=== PATIENT | female | born 1990 | race Caucasian/White ===

== ENCOUNTER 2017-03-12 07:40 | Emergency (ER) | payer BC ==
[2017-03-12 08:04] VITALS: BP 135/69
--- NOTE | 2017-03-12 08:38 | EDM.PDOC ---
ED HPI GENERAL MEDICAL PROBLEM - General Chief Complaint: ENT Problem Stated Complaint: SORE THROAT Time Seen by Provider: 03/12/17 08:11 Source of Information: Reports: Patient History Limitations: Reports: No Limitations - History of Present Illness INITIAL COMMENTS - FREE TEXT/NARRATIVE: Patient presents for evaluation of her significant sore throat. She's been exposed to strep Onset: Gradual Duration: Hour(s):, Getting Worse Location: Reports: Neck Quality: Reports: Ache, Stabbing Severity: Moderate Improves with: Reports: None Worsens with: Reports: None Context: Reports: Sick Contact Associated Symptoms: Reports: Fever/Chills, Loss of Appetite Treatments COUNTY NURSE: Reports: Acetaminophen Throat Pain Score (Numeric/FACES): 8 - Related Data Allergies Allergy/AdvReac Type Severity Reaction Status Date / Time No Known Allergies Allergy Verified 03/12/17 07:59 Home Meds: Home Meds NK [No Known Home Meds] 03/12/17 [History] Past Medical History HEENT History: Reports: Impaired Vision, Other (See Below) Other HEENT History: Past positive strep [employer] WORK[employer] History: Reports: Musculoskeletal History: Reports: Fracture Other Musculoskeletal History: L ankle - Infectious Disease History Infectious Disease History: Reports: Chicken Pox - Past Surgical History Dermatological Surgical History: Reports: Other (See Below) Social & Family History - Tobacco Use Smoking Status *Q: Never Smoker Second Hand Smoke Exposure: No - Caffeine Use Caffeine Use: Reports: Coffee, Tea - Alcohol Use Days Per Week of Alcohol Use: 0 - Recreational Drug Use Recreational Drug Use: No ED ROS ENT - Review of Systems Review Of Systems: See Below Constitutional: Reports: No Symptoms HEENT: Reports: Throat Pain Respiratory: Reports: Cough Cardiovascular: Reports: No Symptoms Endocrine: Reports: Fatigue GI/Abdominal: Reports: No Symptoms : Reports: No Symptoms Musculoskeletal: Reports: No Symptoms Skin: Reports: No Symptoms Neurological: Reports: Headache Psychiatric: Reports: No Symptoms ED EXAM, ENT - Physical Exam Exam: See Below Exam Limited By: No Limitations General Appearance: Alert, WD/WN, Moderate Distress Eye Exam: Bilateral Eye: Normal Inspection Ears: Normal External Exam, Hearing Grossly Normal Nose: Normal Inspection Mouth/Throat: Normal Gums, Normal Lips, Pharyngeal Erythema, Throat Pain Head: Atraumatic, Normocephalic Neck: Normal Inspection, Lymphadenopathy (R), Lymphadenopathy (L) Respiratory/Chest: No Respiratory Distress, Lungs Clear Cardiovascular: Normal Peripheral Pulses, Regular Rate, Rhythm, No Murmur Back: Normal Inspection Extremities: Normal Inspection Neurological: Alert, Oriented, Normal Cognition Psychiatric: Normal Affect, Normal Mood Skin: Warm, Dry, Intact, No Rash Course - Vital Signs Last Recorded V/S: Last Vital Signs Temp 101.3 F H 03/12/17 08:05 Pulse 112 H 03/12/17 08:05 Resp 16 03/12/17 08:05 BP 135/69 03/12/17 08:05 Pulse Ox 99 03/12/17 08:05 Departure - Departure Time of Disposition: 08:36 Disposition: Home, Self-Care 01 Condition: good Clinical Impression: Strep pharyngitis - Discharge Information Instructions: Strep Throat Referrals: PCP,None [Primary Care Provider] - Forms: ED Department Discharge Additional Instructions: Patient evaluated in the emergency room for her pharyngitis. Strep screen was obtained and the result was positive for strep. The patient will be treated with amoxicillin 500 mg 3 times a day for 10 days Prescription is written. Disposition is to home. - Problem List & Annotations (1) Strep pharyngitis SNOMED Code(s): 27087159, [id number] Code(s): J02.0 - STREPTOCOCCAL PHARYNGITIS Status: Acute Priority: Medium Current Visit: Yes - Problem List Review Problem List Initiated/Reviewed/Updated: Yes
== END 2017-03-12 08:46 | disposition home or self-care (01) ==
LOC: JP.ED 07:40
DX: J02.0 Streptococcal pharyngitis (principal)
CPT/HCPCS: 87430; 99283